=== PATIENT | female | born 1960 | race Caucasian/White ===

== ENCOUNTER → 2016-04-27 | Outpatient (CLI) | payer OTHER ==
[~2016-04-27] MED LIST: FLUT16SP12 NS; HYDR12.512 PO; LEVO125T9 PO; MONT10TA15 PO; VENL150C42 PO
== END ==
LOC: IMA.MDS 12:55
PROVIDERS: ATTEND Family Medicine
DX: M17.11 Unilateral primary osteoarthritis, right knee (principal)

== ENCOUNTER 2016-05-22 19:21 | Emergency (ER) | payer OTHER ==
[~2016-05-22] VITALS: Ht 160 cm; Wt 90.6 kg
[~2016-05-22 19:21] MED LIST changes: +FLUT16SP12 EA NOSTRIL; -FLUT16SP12 NS
--- OUTSIDE RECORDS SUMMARY | 2016-05-22 19:24 | XMS REPORT | Referral Summary ---
Author Author [facility] Organization [facility] Address Unknown Phone Unavailable Care Team Providers Care Warp Doffer Name Role Phone Eve Jaffe Primary Care Physician [phone] Encounter VC Date(s): 08/08/15 - 08/08/15 [facility] [address] [place] [address] Discharge Diagnosis: Hypothyroidism (disorder) Discharge Diagnosis: Benign essential hypertension (disorder) Discharge Diagnosis: Hyperlipidemia Discharge Disposition: 01-Home or Self Care Attending Physician: Sandra Jaffe DO Admitting Physician: Sandra Jaffe DO Vital Signs Most recent to 1 oldest [Reference Range]: Temperature Tympanic 36.4 degC [36.6-38.1 degC] *LOW* (08/08/15 2:56 PM) Peripheral Pulse 89 bpm Rate [60-100 bpm] (08/08/15 2:56 PM) Respiratory Rate 20 br/min [14-20 br/min] (08/08/15 2:56 PM) Blood Pressure 122/80 mmHg [90-140/60-90 mmHg] (08/08/15 2:56 PM) SpO2 98 % (08/08/15 2:56 PM) Problem List Condition Effective Dates Status Health Status Informant Allergic rhinitis Active (disorder)(Confirmed ) Benign essential Active hypertension (disorder)(Confirmed ) Depression(Confirmed Active ) Visual Active problems(Confirmed) Eczema(Confirmed) Active Family history of Active colon cancer(Confirmed) Pituitary Active insufficiency(Confir med) Hypothyroidism Active (disorder)(Confirmed ) Head Active trauma(Confirmed) Menopausal Active symptoms(Confirmed) Overweight(Confirmed Active ) Preventive Active measure(Confirmed) Sinus Active infections(Confirmed ) Allergies, Adverse Reactions, Alerts No Known Allergies Medications Ciarra-D 12 Hour tabs, Oral, q12hr, 0 Refill(s) Start Date: 01/02/14 Status: Ordered Flonase 50 mcg/inh nasal spray 50 mcg 1 sprays, Nasal, Daily, # 3 Each, 3 Refill(s), Pharmacy: [facility] Start Date: 08/08/15 Status: Ordered hydrochlorothiazide 25 mg oral tablet 25 mg 1 tabs, Oral, Daily, # 90 tabs, 2 Refill(s), Pharmacy: [facility], 1 tabs Oral Daily Start Date: 08/08/15 Status: Ordered levothyroxine 112 mcg (0.112 mg) oral tablet 112 mcg 1 tabs, Oral, Daily, # 90 tabs, 2 Refill(s), Pharmacy: [facility], PT DUE FOR APPOINMENT, 1 tabs Oral Daily Start Date: 08/08/15 Status: Ordered meloxicam 15 mg oral tablet 15 mg 1 tabs, Oral, Daily, # 90 tabs, 2 Refill(s), Pharmacy: [facility], 1 tabs Oral Daily Start Date: 08/08/15 Status: Ordered montelukast 10 mg oral tablet 10 mg 1 tabs, Oral, qPM, # 90 tabs, 2 Refill(s), Pharmacy: [facility], 1 tabs Oral qPM Start Date: 08/08/15 Status: Ordered Results No data available for this section Immunizations Vaccine Date Refusal Reason tetanus/diphth/pertuss (Tdap) adult/adol 11/20/14 influenza virus vaccine, live 11/18/12 influenza virus vaccine, live 11/19/11 Procedures Procedure Date Related Diagnosis Body Site Mammogram 04/21/14 Colonoscopy 11/10/12 Vaginal Pap smear 09/09/12 section Cholecystectomy Tubal ligation Social History Social History Type Response Smoking Status Never smoker Assessment and Plan Extracted from: Title: Office Visit Note Author: Sandra Jaffe DO Date: 08/08/15 Assessment/Plan Benign essential hypertension (disorder) Continue current regimen. Patient will have CMPwith her lab work when fasting. Return to clinic in 6 months. Also recommend patient return to clinic at her convenience for well woman exam. Ordered: Office Visit Level 4 Est 52158 Hyperlipidemia CMP and FLP. Further recommendations after results. Ordered: Comprehensive Metabolic Panel Lipid Panel Office Visit Level 4 Est 05558 Hypothyroidism (disorder) TSH. Further recommendations after results. Ordered: Office Visit Level 4 Est 50724 TSH with Reflex Free T4 Orders: fluticasone nasal, 50 mcg 1 sprays, Nasal, Daily, # 3 Each, 3 Refill(s ), [facility]acy: [facility] hydrochlorothiazide, 25 mg 1 tabs, Oral, Daily, # 90 tabs, 2 Refill(s), Pharmacy: [facility], 1 tabs Oral Daily levothyroxine, 112 mcg 1 tabs, Oral, Daily, # 90 tabs, 2 Refill(s), Pharmacy: [facility], PT DUE FOR APPOINMENT, 1 tabs Oral Daily meloxicam, 15 mg 1 tabs, Oral, Daily, # 90 tabs, 2 Refill(s), Pharmacy: [facility], 1 tabs Oral Daily montelukast, 10 mg 1 tabs, Oral, qPM, # 90 tabs, 2 Refill(s), Pharmacy: [facility], 1 tabs Oral qPM
--- OUTSIDE RECORDS SUMMARY | 2016-05-22 19:24 | XMS REPORT | Referral Summary ---
Author Organization Unknown Address Unknown Phone Unavailable Care Team Providers Care Autocad Detailer Name Role Phone Yelitza Post Primary Care Physician [phone] Encounter VC Date(s): 04/13/14 - 04/13/14 [facility] [address] [place] [address] [address] [place] [id number] Discharge Diagnosis: Depression Discharge Diagnosis: Hypothyroidism Discharge Diagnosis: Well woman exam Discharge Diagnosis: Hypertension Discharge Disposition: Home or Self Care Attending Physician: Janey Cruz APRN Admitting Physician: Janey Cruz APRN Vital Signs Most recent to 1 oldest [Reference Range]: Temperature Tympanic 36.3 degC [36.6-38.1 degC] *LOW* (04/13/14 10:21 AM) Peripheral Pulse 88 bpm Rate [60-100 bpm] (04/13/14 10:21 AM) Blood Pressure 130/78 mmHg [90-140/60-90 mmHg] (04/13/14 10:21 AM) Problem List Condition Effective Dates Status Health [...] ) Allergies, Adverse Reactions, Alerts No Known Medication Allergies Medications Ciarra-D 12 Hour tabs, Oral, q12hr, 0 Refill(s) Start Date: 01/02/14 Status: Ordered Effexor Oral, 0 Refill(s) Start Date: 01/02/14 Status: Ordered Flonase 50 mcg/inh nasal spray 1 sprays, Nasal, Daily, 0 Refill(s) Start Date: 03/10/14 Status: Ordered hydrochlorothiazide 25 mg oral tablet 1 tabs, Oral, Daily, Patient must schedule appt prior to next fill., # 30 tabs, 0 Refill(s), Pharmacy: [id number], 1 tabs Oral Daily,Instr: Patient must schedule appt prior to next fill. Special Instructions: Patient must schedule appt prior to next fill. Start Date: 03/19/14 Status: Ordered levothyroxine 112 mcg (0.112 mg) oral tablet See Instructions, TAKE 1 TABLET BY MOUTH EVERY DAY, # 15 tabs, 0 Refill(s), Pharmacy: [facility] [id number], PT DUE FOR APPOINMENT, TAKE 1 TABLET BY MOUTH EVERY DAY Special Instructions: TAKE 1 TABLET BY MOUTH EVERY DAY Start Date: 04/05/14 Status: Ordered montelukast 10 mg oral tablet See Instructions, TAKE 1 TABLET DAILY, # 30 tabs, 0 Refill(s), Pharmacy: [facility], TAKE 1 TABLET DAILY Special Instructions: TAKE 1 TABLET DAILY Start Date: 03/15/14 Status: Ordered Results Hematology Most recent to 1 oldest [Reference Range]: WBC [4.8-10.8 K/uL] 8.1 K/uL (04/13/14 11:06 AM) RBC [4.00-5.20 M/uL] 4.39 M/uL (04/13/14 11:06 AM) Hgb [12.0-16.0 12.7 gm/dL gm/dL] (04/13/14 11:06 AM) Hct [37.0-47.0 %] 35.8 % *LOW* (04/13/14 11:06 AM) MCV [82.0-99.0 fL] 81.5 fL *LOW* (04/13/14 11:06 AM) MCH [27.0-32.0 pg] 28.9 pg (04/13/14 11:06 AM) MCHC [32.0-36.0 35.5 gm/dL gm/dL] (04/13/14 11:06 AM) RDW [11.5-14.5 %] 15.3 % *HI* (04/13/14 11:06 AM) Platelet [150-400 352 K/uL K/uL] (3/3/15 11:06 AM) MPV [8.8-14.8 fL] 10.0 fL (04/13/14) Immature 0.1 % Granulocytes (04/13/14) [0.0-1.0 %] Neutrophils [51-75 61 % %] (04/13/14) Lymphocytes [20-46 30 % %] (04/13/14) Monocytes [4-11 %] 7 % (04/13/14) Eosinophils [0-4 %] 1 % (04/13/14) Basophils [0-2 %] 1 % (04/13/14) Neutro Absolute 4.89 THOUS [1.90-7.00 THOUS] (04/13/14) Lymph Absolute 2.45 THOUS [0.80-3.30 THOUS] (04/13/14) [place] Absolute 0.59 THOUS [0.30-1.00 THOUS] (04/13/14) Eos Absolute 0.10 THOUS [0.00-0.50 THOUS] (04/13/14 AM) Baso Absolute 0.04 THOUS [0.00-0.20 THOUS] (04/13/14) Chemistry Most recent to 1 oldest [Reference Range]: Sodium Lvl [135-144 144 mEq/L mEq/L] (04/13/14 AM) Potassium Lvl 3.8 mEq/L [3.5-5.2 mEq/L] (04/13/14) Chloride [99-111 106 mEq/L mEq/L] (04/13/14 AM) CO2 [22-31 mEq/L] 24 mEq/L (04/13/14 AM) AGAP [3-20] 14 (04/13/14 AM) BUN [10-20 mg/dL] 12 mg/dL (04/13/14 AM) Glucose Lvl [70-99 93 mg/dL mg/dL] (04/13/14 AM) Creatinine Lvl 0.66 mg/dL [0.57-1.11 mg/dL] (04/13/14 11:06 AM) eGFR [>60 mL/min] >60 mL/min 1 (04/13/14 11:06 AM) Calcium Lvl 9.5 mg/dL [8.9-10.5 mg/dL] (04/13/14 11:06 AM) Chol [0-199 mg/dL] 248 mg/dL *HI* (04/13/14 11:06 AM) Trig [0-149 mg/dL] 147 mg/dL (04/13/14 11:06 AM) HDL [40-84 mg/dL] 63 mg/dL (04/13/14 11:06 AM) LDL [0-130 mg/dL] 156 mg/dL *HI* (04/13/14 1106 AM) VLDL Cholesterol 29 mg/dL [0-28 mg/dL] *HI* (04/13/14 11:06 AM) Cardiac Risk 3.9 [0.0-5.0] (04/13/14 11:06 AM) TSH [0.35-4.94] 0.34 *LOW* (04/13/14 11:06 AM) 1Result Comment: Multiply eGFR results by 1.21 for race. Immunizations Vaccine Date Refusal Reason influenza virus vaccine, live 11/18/12 influenza virus vaccine, live 11/19/11 Procedures Procedure Date Related Diagnosis Body Site Collection of venous blood by venipuncture 04/13/14 Colonoscopy 11/10/12 section Cholecystectomy Colonoscopy Tubal ligation Social History Social History Type Response Smoking Status Never smoker Assessment and Plan Extracted from: Title: Office Visit Note Author: Janey Cruz APRN Date: 04/13/14 Assessment/Plan 1.Well woman exam pap next yr. mammo. Depression may rf meds x1yr. Hypertension lab work today, may rf meds. Ordered: Basic Metabolic Panel CBC w/ Differential Hypothyroidism Orders: Lipid Panel MG Mammogram Routine Screening Bilat TSH 3rd Generation
--- OUTSIDE RECORDS SUMMARY | 2016-05-22 19:24 | XMS REPORT | Continuity of Care Document ---
Author Author [facility] Organization [facility] Address Unknown Phone Unavailable Allergies Medications Problems Procedures Results Encounters ACCT No. Visit Date/Time Discharge Status Pt. Type Provider Facility Loc./Unit Complaint [id number] 04/28/2013 08:29:00 04/28/2013 23 :59:59 CLS Outpatient [id number] 04/01/2013 14:44:00 04/01/2013 23 :59:59 CLS Outpatient [id number] 03/03/2013 14:20:00 03/03/2013 23 :59:59 CLS Outpatient
--- OUTSIDE RECORDS SUMMARY | 2016-05-22 19:24 | XMS REPORT | Continuity of Care Document ---
Author Author Miguel Robison MD Ambulatory Address [address] [place] [address] K[facility] [place] [address] Phone Care Team Providers Care Statistician Theoretical Name Role Phone Krystina Post PP Unavailable Krystina Post RP Unavailable Payers Payer name Insurance type Covered green party ID Authorization(s) Unknown Problems Condition Effective Dates (start - stop) Clinical Status Sinusitis, Acute - *Acute Noninfectious Gastroenteritis - *Acute Sinusitis, Acute - *Acute Depression - *Chronic Hypothyroidism - *Chronic Microalbuminuria - *Acute Hypertension, Benign - *Chronic HYPOTHYROIDISM NOS - Allergic rhinitis, cause unspecified - *Acute Dysuria - *Acute HEMATURIA NOS - *Acute Need for unspecified prophylactic measure - *Acute Family history of colon cancer - *Chronic Contact dermatitis and other eczema, unspecified cause - * Chronic Depression - *Chronic Hypertension, Benign - Controlled Hypothyroidism - *Chronic Allergic rhinitis, cause unspecified - *Chronic Influenza Vaccine - Hypertension, Unspecified - *Chronic Nevus, non-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 Other dyschromia - *Chronic Allergic rhinitis, cause unspecified - *Symptomatic Deviated nasal septum - *Chronic Chronic recurrent sinusitis - *Poor control Gynecological Examination - *Routine Allergic rhinitis, cause unspecified - *Chronic Family History Family Member Diagnosis Age At Onset Status Brother (Unknown) Obesity Yes Family h/o (Unknown) Allergies Yes Family h/o (Unknown) Premature CAD Yes Family h/o (Unknown) Obesity Yes Brother (Unknown) Allergies Yes Family h/o (Unknown) Cancer Yes Social History Social History Element Description Quantity Unknown Allergies, Adverse Reactions, Alerts Substance Reaction Severity Status Unknown Medications Medication Instructions Dosage Effective Dates (start - stop) Status Zofran 4 mg tablet take 1 Tablet (4MG) by oral route every 6 hours 4 MG - Active hydrochlorothiazide 25 mg tablet take 1 Tablet by Oral route every day 0 - Active Effexor XR 150 mg capsule,extended release take 1 capsule (150MG) by oral route every day 150 MG - Active Singulair 10 mg tablet Take 1 tablet by mouth every day. - Active Flonase 50 mcg/actuation nasal spray,suspension inhale 1 spray (50MCG) by intranasal route every day in each nostril 50 MCG - Active Tirosint 112 mcg capsule take 1 capsule (112MCG) by oral route every day 112 MCG - Active Immunizations Vaccine Date Status Comments Fluzone HD 0.5 completed flu (split) preservative free, 3 yrs or older completed Results Test Name Date and Time Measure Units Reference Range Abnormal Flag Comments Unknown Vital Signs Date / Time: Height Weight Pulse Rate Blood Pressure Temperature /08:33:00 64.25 in 200.20 lbs 88 /min 112/74 mm[Hg] 98.4 F Procedures Procedure Date Unknown Encounters Encounter Location Date Patient Visit [facility] Patient Visit [facility] Patient Visit [facility] Patient Visit [facility] Patient Visit [facility] Patient Visit [facility] Patient Visit [facility] Patient Visit [facility] Patient Visit [facility] Patient Visit [facility] Patient Visit [facility] E21 Derm Patient Visit [facility] FC ENT Patient Visit [facility] Advance Directives Directive Effective Date Unknown
--- OUTSIDE RECORDS SUMMARY | 2016-05-22 19:24 | XMS REPORT | Referral Summary ---
Author Author [facility] Organization [facility] Address Unknown Phone Unavailable Care Team Providers Care Roving Inspector Name Role Phone Eve Jaffe Primary Care Physician [phone] Encounter Date(s): 11/20/14 - 11/20/14 [facility] [address] [place] [address] [facility] Discharge Diagnosis: Hand laceration Discharge Disposition: 01-Home or Self Care Attending Physician: Provider, Immediate Care Admitting Physician: Provider, Immediate Care Vital Signs Most recent to 1 oldest [Reference Range]: Temperature Oral 37.1 degC [35.8-37.3 degC] (11/20/14 4:19 PM) Peripheral Pulse 88 bpm Rate [60-100 bpm] (11/20/14 4:19 PM) Blood Pressure 140/86 mmHg [90-140/60-90 mmHg] (11/20/14 4:19 PM) SpO2 97 % (11/20/14 4:19 PM) Problem List Condition Effective Dates Status [...] Daily, # 3 Each, 3 Refill(s), [facility]acy: [facility] Start Date: 03/02/15 Status: Ordered hydrochlorothiazide 25 mg oral tablet 25 mg 1 tabs, Oral, Daily, # 90 tabs, 0 Refill(s), Pharmacy: [id number], 1 tabs Oral Daily Start Date: 05/06/15 Status: Ordered levothyroxine 112 mcg (0.112 mg) oral tablet 112 mcg 1 tabs, Oral, Daily, # 90 tabs, 0 Refill(s), Pharmacy: [facility] [id number], PT DUE FOR APPOINMENT, 1 tabs Oral Daily Start Date: 05/06/15 Status: Ordered montelukast 10 mg oral tablet 10 mg 1 tabs, Oral, qPM, # 90 tabs, 0 Refill(s), Pharmacy: [facility] [id number], 1 tabs Oral qPM Start Date: 05/06/15 Status: Ordered Results No data available for this section Immunizations Vaccine Date Refusal Reason tetanus/diphth/pertuss (Tdap) adult/adol 11/20/14 influenza virus vaccine, live 11/18/12 influenza virus vaccine, live 11/19/11 Procedures Procedure Date Related Diagnosis Body Site Simple repair of superficial wounds of scalp, 11/20/14 neck, axillae, external genitalia, trunk and/or extremities (including hands and feet); 2.5 cm or less Simple repair of superficial wounds of scalp, 11/20/14 neck, axillae, external genitalia, trunk and/or extremities (including hands and feet); 2.5 cm or less Simple repair of superficial wounds of scalp, 11/20/14 neck, axillae, external genitalia, trunk and/or extremities (including hands and feet); 2.5 cm or less Colonoscopy 11/10/12 section Cholecystectomy Tubal ligation Social History Social History Type Response Smoking Status Never smoker Assessment and Plan Extracted from: Title: Office Visit Note Author: Marquis Napoles MD Date: 11/20/14 Assessment/Plan Hand laceration - Full-thickness skin laceration of thedorsal aspect of the patient'sright hand. - Recommend suture removal in 7-10 days. - TDaP given today. Procedure note: The area was cleaned and prepped with Betadine.The area was anesthetized with 2ccs of 1 percent lidocaine without epinephrinein a field block. The laceration was closed with 4 simple interrupted5-0 Prolene sutures in the usual sterile fashion.Laceration well approximatedwith the sutures and then covered with asterile bandage. The patient tolerated the procedure well.
--- OUTSIDE RECORDS SUMMARY | 2016-05-22 19:24 | XMS REPORT | Referral Summary ---
Author Author [facility] Organization [facility] Address Unknown Phone Unavailable Care Team Providers Care Taker Off Hemp Fiber Name Role Phone Eve Jaffe Primary Care Physician [phone] Encounter VC Date(s): 10/21/15 - 10/21/15 [facility], [address] [place] [id number] Discharge Diagnosis: Medication monitoring encounter Discharge Disposition: 01-Home or Self Care Attending Physician: Misha Wilkinson APRN Admitting Physician: Misha Wilkinson APRN Vital Signs Most recent to 1 oldest [Reference Range]: Temperature Tympanic 36.8 degC [36.6-38.1 degC] (10/21/15 3:06 PM) Apical Heart Rate 88 bpm [60-100 bpm] (10/21/15 3:06 PM) Respiratory Rate 18 br/min [14-20 br/min] (10/21/15 3:06 PM) Blood Pressure 138/80 mmHg [90-140/60-90 mmHg] (10/21/15 3:06 PM) SpO2 98 % (10/21/15 3:06 PM) Problem List Condition Effective Dates Status [...] Daily, # 3 Each, 3 Refill(s), Pharmacy: [facility] Start Date: 08/08/15 Status: Ordered hydrochlorothiazide 25 mg oral tablet 25 mg 1 tabs, Oral, Daily, # 90 tabs, 2 Refill(s), Pharmacy: [facility], 1 tabs Oral Daily Start Date: 08/08/15 Status: Ordered levothyroxine 112 mcg (0.112 mg) oral tablet 112 mcg 1 tabs, Oral, Daily, # 90 tabs, 2 Refill(s), Pharmacy: [facility], PT DUE FOR APPOINMENT, 1 tabs Oral Daily Start Date: 08/08/15 Status: Ordered meloxicam 15 mg oral tablet 15 mg 1 tabs, Oral, Daily, # 90 tabs, 0 Refill(s) Start Date: 08/26/15 Status: Ordered montelukast 10 mg oral tablet 10 mg 1 tabs, Oral, qPM, # 90 tabs, 2 Refill(s), Pharmacy: [facility], 1 tabs Oral qPM Start Date: 08/08/15 Status: Ordered sertraline 50 mg oral tablet 50 mg 1 tabs, Oral, Daily, # 90 tabs, 0 Refill(s), Pharmacy: [facility], 1 tabs Oral Daily Start Date: 09/23/15 Status: Ordered Results Chemistry Most recent to 1 oldest [Reference Range]: Sodium Lvl [135-144 139 mEq/L mEq/L] (10/21/15 4:33 PM) Potassium Lvl 4.1 mEq/L [3.5-5.2 mEq/L] (10/21/15 4:33 PM) Chloride [99-111 102 mEq/L mEq/L] (10/21/15 4:33 PM) CO2 [22-31 mEq/L] 31 mEq/L (10/21/15 4:33 PM) AGAP [3-20] 6 (10/21/15 4:33 PM) BUN [10-20 mg/dL] 19 mg/dL (10/21/15 4:33 PM) Glucose Lvl [70-99 81 mg/dL mg/dL] (10/21/15 4:33 PM) Creatinine Lvl 0.67 mg/dL [0.57-1.11 mg/dL] (10/21/15 4:33 PM) eGFR [>60 mL/min] >60 mL/min 1 (10/21/15 4:33 PM) Calcium Lvl 9.7 mg/dL [8.9-10.5 mg/dL] (10/21/15 4:33 PM) 1Result Comment: Multiply eGFR results by 1.21 for race. Immunizations Vaccine Date Refusal Reason tetanus/diphth/pertuss (Tdap) adult/adol 11/20/14 influenza virus vaccine, live 11/18/12 influenza virus vaccine, live 11/19/11 Procedures Procedure Date Related Diagnosis Body Site Mammogram 10/12/15 Colonoscopy 11/10/12 Vaginal Pap smear 09/09/12 section Cholecystectomy Tubal ligation Social History Social History Type Response Smoking Status Never smoker Assessment and Plan No data available for this section
--- OUTSIDE RECORDS SUMMARY | 2016-05-22 19:24 | XMS REPORT | Referral Summary ---
Author Author [facility] Organization [facility] Address Unknown Phone Unavailable Care Team Providers Care Musical Instrument Mechanic Name Role Phone Eve Jaffe Primary Care Physician [phone] Encounter VC Date(s): 09/20/15 - 09/20/15 [facility], [address] [place] [id number] Discharge Disposition: 01-Home or Self Care Attending Physician: Misha Wilkinson APRN Admitting Physician: Misha Wilkinson APRN Vital Signs Most recent to 1 oldest [Reference Range]: Temperature Tympanic 36.6 degC [36.6-38.1 degC] (09/20/15 3:43 PM) Peripheral Pulse 88 bpm Rate [60-100 bpm] (09/20/15 3:43 PM) Blood Pressure 136/84 mmHg [90-140/60-90 mmHg] (09/20/15 3:43 PM) Problem List Condition Effective Dates Status [...] Daily, # 3 Each, 3 Refill(s), Pharmacy: [facility] Start Date: 08/08/15 Status: Ordered hydrochlorothiazide 25 mg oral tablet 25 mg 1 tabs, Oral, Daily, # 90 tabs, 2 Refill(s), Pharmacy: [facility], 1 tabs Oral Daily Start Date: 08/08/15 Status: Ordered levothyroxine 112 mcg (0.112 mg) oral tablet 112 mcg 1 tabs, Oral, Daily, # 90 tabs, 2 Refill(s), Pharmacy: [facility], PT DUE FOR APPOINMENT, 1 tabs Oral Daily Start Date: 08/08/15 Status: Ordered meloxicam 15 mg oral tablet 15 mg 1 tabs, Oral, Daily, # 90 tabs, 0 Refill(s) Start Date: 08/26/15 Status: Ordered montelukast 10 mg oral tablet 10 mg 1 tabs, Oral, qPM, # 90 tabs, 2 Refill(s), Pharmacy: [facility], 1 tabs Oral qPM Start Date: 08/08/15 Status: Ordered sertraline 50 mg oral tablet See Instructions, 0.5 tabs PO daily x1 week then 1 tabs Oral Daily, # 30 tabs, 0 Refill(s), [id number], 0.5 tabs PO daily x1 week then 1 tabs Oral Daily Start Date: 09/20/15 Status: Ordered Results No data available for [...]
--- OUTSIDE RECORDS SUMMARY | 2016-05-22 19:25 | XMS REPORT | Referral Summary ---
Author Author [facility] Organization [facility] Address Unknown Phone Unavailable Care Team Providers Care International Sales Manager Name Role Phone Eve Jaffe Primary Care Physician [phone] Encounter VC Date(s): 08/26/15 - 08/26/15 [facility], [address] [place] [id number] Discharge Disposition: 01-Home or Self Care Attending Physician: Sandra Jaffe DO Admitting Physician: Sandra Jaffe DO Vital Signs Most recent to 1 oldest [Reference Range]: Peripheral Pulse 79 bpm Rate [60-100 bpm] (08/26/15 3:26 PM) Respiratory Rate 18 br/min [14-20 br/min] (08/26/15 3:26 PM) Blood Pressure 118/78 mmHg [90-140/60-90 mmHg] (08/26/15 3:26 PM) SpO2 98 % (08/26/15 3:26 PM) Problem List Condition Effective Dates Status [...] Daily, # 3 Each, 3 Refill(s), Pharmacy: [facility] Start Date: 08/08/15 Status: Ordered hydrochlorothiazide 25 mg oral tablet 25 mg 1 tabs, Oral, Daily, # 90 tabs, 2 Refill(s), [facility]acy: [facility], 1 tabs Oral Daily Start Date: 08/08/15 Status: Ordered levothyroxine 112 mcg (0.112 mg) oral tablet 112 mcg 1 tabs, Oral, Daily, # 90 tabs, 2 Refill(s), [facility]: [facility], PT DUE FOR APPOINMENT, 1 tabs Oral Daily Start Date: 08/08/15 Status: Ordered meloxicam 15 mg oral tablet 15 mg 1 tabs, Oral, Daily, # 90 tabs, 0 Refill(s) Start Date: 08/26/15 Status: Ordered montelukast 10 mg oral tablet 10 mg 1 tabs, Oral, qPM, # 90 tabs, 2 Refill(s), [facility]acy: [facility], 1 tabs Oral qPM Start [...]
--- OUTSIDE RECORDS SUMMARY | 2016-05-22 19:25 | XMS REPORT | Continuity of Care Document ---
Author Author Krystina Post MD [facility] Ambulatory Address [address] [place] [address] [facility] [place] [address] Phone Care Team Providers Care Critical Care Rn Name Role Phone Krystina Post PP Unavailable Payers Payer name Insurance type Covered constitution party ID Authorization(s) Unknown Problems Condition Effective Dates (start - stop) Clinical Status Sinusitis, Acute - *Acute Depression - *Chronic Hypothyroidism - *Chronic Microalbuminuria - *Acute Sinusitis, Acute - *Acute Noninfectious Gastroenteritis - *Acute Hypertension, Benign - *Chronic HYPOTHYROIDISM [...] hyperplasia - *Chronic Other dyschromia - *Chronic Gynecological Examination - *Routine Allergic rhinitis, cause [...] Dosage Effective Dates (start - stop) Status Singulair 10 mg tablet Take 1 tablet by mouth every day. - Active Effexor XR 150 mg capsule,extended release take 1 capsule (150MG) by oral route every day 150 MG - Active Flonase 50 mcg/actuation nasal spray,suspension inhale 1 spray (50MCG) by intranasal route every day in each nostril 50 MCG - Active Augmentin 875 mg-125 mg tablet take 1 tablet by oral route every 12 hours for 10 days 0 - No Longer Active levothyroxine 125 mcg tablet Take 1 tablet by mouth every day. 2012 - Active hydrochlorothiazide 25 mg tablet take 1 Tablet by Oral route every day 0 - Active Zofran 4 mg tablet take 1 Tablet (4MG) by oral route every 6 hours 4 MG - Active Immunizations Vaccine Date Status Comments Fluzone HD 0.5 completed flu (split) preservative free, 3 yrs or older completed Results Test Name Date and Time Measure Units Reference Range Abnormal Flag Comments Unknown Vital Signs Date / Time: Height Weight Pulse Rate Blood Pressure Temperature /14:48:00 64.25 in 197.00 lbs 74 /min 122/68 mm[Hg] 97.5 F Procedures Procedure Date Unknown Encounters Encounter Location Date Patient Visit [facility] Patient Visit [facility] Patient Visit [facility] Patient Visit [facility] Patient Visit [facility] Patient Visit [facility] Patient Visit [facility] Patient Visit [facility] Patient Visit [facility] Patient Visit [facility] Patient Visit [facility] E[facility] Derm Patient Visit [facility] Advance Directives Directive Effective Date Unknown
--- OUTSIDE RECORDS SUMMARY | 2016-05-22 19:25 | XMS REPORT | Referral Summary ---
Author Author [facility], Family Medicine Organization [facility] Address Unknown Phone Unavailable Care Team Providers Care Bevel Mill Operator Name Role Phone Eve Jaffe Primary Care Physician [phone] Encounter VC Date(s): 06/16/15 - 06/16/15 [facility], [address] [place] [address]- Discharge Disposition: 01-Home or Self Care Attending Physician: Misha Wilkinson APRN Admitting Physician: Misha Wilkinson APRN Vital Signs Most recent to 1 oldest [Reference Range]: Peripheral Pulse 72 bpm Rate [60-100 bpm] (06/16/15 8:08 AM) Blood Pressure 118/65 mmHg [90-140/60-90 mmHg] (06/16/15 8:08 AM) Problem List Condition Effective Dates Status [...] Daily, # 3 Each, 3 Refill(s), Pharmacy: [facility] Start Date: 03/02/15 Status: Ordered hydrochlorothiazide 25 mg oral tablet 25 mg 1 tabs, Oral, Daily, # 90 tabs, 0 Refill(s), Pharmacy: [facility] [id number], 1 tabs Oral Daily Start Date: 05/06/15 Status: Ordered levothyroxine 112 mcg (0.112 mg) oral tablet 112 mcg 1 tabs, Oral, Daily, # 90 tabs, 0 Refill(s), Pharmacy: [facility] [id number], PT DUE FOR APPOINMENT, 1 tabs Oral Daily Start Date: 05/06/15 Status: Ordered meloxicam 15 mg oral tablet 15 mg 1 tabs, Oral, Daily, # 15 tabs, 0 Refill(s), Pharmacy: [facility] [id number], 1 tabs Oral Daily Start Date: 06/16/15 Status: Ordered montelukast 10 mg oral tablet 10 mg 1 tabs, Oral, qPM, # 90 tabs, 0 Refill(s), [facility] [id number], 1 tabs Oral qPM Start Date: 05/06/15 Status: Ordered Results No data available for this section Immunizations Vaccine Date Refusal Reason tetanus/diphth/pertuss (Tdap) adult/adol 11/20/14 influenza virus vaccine, live 11/18/12 influenza virus vaccine, live 11/19/11 Procedures Procedure Date Related Diagnosis Body Site Colonoscopy 11/10/12 section Cholecystectomy Tubal ligation Social History Social History Type Response Smoking Status Never smoker Assessment and Plan No data available for this section
--- OUTSIDE RECORDS SUMMARY | 2016-05-22 19:25 | XMS REPORT | Referral Summary ---
Author Author [facility], Family Medicine Organization [facility] Address Unknown Phone Unavailable Care Team Providers Care Dental Intern Name Role Phone Eve Jaffe Primary Care Physician [phone] Encounter VC Date(s): 06/02/15 - 06/02/15 [facility], [address] [place] [address]- Discharge Disposition: 01-Home or Self Care Attending Physician: Misha Wilkinson APRN Admitting Physician: Misha Wilkinson APRN Vital Signs Most recent to 1 oldest [Reference Range]: Peripheral Pulse 73 bpm Rate [60-100 bpm] (06/02/15 8:05 AM) Respiratory Rate 18 br/min [14-20 br/min] (06/02/15 8:05 AM) Blood Pressure 110/78 mmHg [90-140/60-90 mmHg] (06/02/15 8:05 AM) SpO2 98 % (06/02/15 8:05 AM) Problem List Condition Effective Dates Status [...] Daily, # 3 Each, 3 Refill(s), Pharmacy: [facility] Start Date: 03/02/15 Status: Ordered hydrochlorothiazide 25 mg oral tablet 25 mg 1 tabs, Oral, Daily, # 90 tabs, 0 Refill(s), Pharmacy: [facility] [id number], 1 tabs Oral Daily Start Date: 05/06/15 Status: Ordered levothyroxine 112 mcg (0.112 mg) oral tablet 112 mcg 1 tabs, Oral, Daily, # 90 tabs, 0 Refill(s), Pharmacy: [facility] [id number], PT DUE FOR APPOINMENT, 1 tabs Oral Daily Start Date: 05/06/15 Status: Ordered meloxicam 15 mg oral tablet 15 mg 1 tabs, Oral, Daily, # 15 tabs, 0 Refill(s), Pharmacy: [facility] [id number], 1 tabs Oral Daily Start Date: 06/02/15 Status: Ordered montelukast 10 mg oral tablet 10 mg 1 tabs, Oral, qPM, # 90 tabs, 0 Refill(s), Pharmacy: [facility] [id number], 1 tabs Oral qPM Start Date: 05/06/15 [...]
--- OUTSIDE RECORDS SUMMARY | 2016-05-22 19:25 | XMS REPORT | Referral Summary ---
Author Author [facility], Family [facility] Organization [facility] Address Unknown Phone Unavailable Care Team Providers Care Segmental Wall Installer Name Role Phone Eve Jaffe Primary Care Physician [phone] Encounter VC Date(s): 01/12/16 - 01/12/16 [facility], [address] [place] [address] Discharge Diagnosis: Benign essential hypertension (disorder) Discharge Diagnosis: Anxiety Discharge Diagnosis: Chronic insomnia Discharge Disposition: 01-Home or Self Care Attending Physician: Sandra Jaffe DO Admitting Physician: Sandra Jaffe DO Vital Signs Most recent to 1 oldest [Reference Range]: Temperature Tympanic 36.8 degC [36.6-38.1 degC] (01/12/16 2:55 PM) Peripheral Pulse 97 bpm Rate [60-100 bpm] (01/12/16 2:55 PM) Blood Pressure 140/88 mmHg [90-140/60-90 mmHg] (01/12/16 2:55 PM) SpO2 97 % (01/12/16 2:55 PM) Problem List Condition Effective Dates Status Health Status Informant Allergic rhinitis Active (disorder)(Confirmed ) Benign essential Active hypertension (disorder)(Confirmed ) Depression(Confirmed Active ) Visual Active problems(Confirmed) Eczema(Confirmed) Active Family history of Active colon cancer(Confirmed) Pituitary Active insufficiency(Confir med) Hypothyroidism Active (disorder)(Confirmed ) Head Active trauma(Confirmed) Menopausal Active symptoms(Confirmed) Overweight(Confirmed Active ) Chronic Active insomnia(Confirmed) Preventive Active measure(Confirmed) Sinus Active infections(Confirmed ) Allergies, Adverse Reactions, Alerts No Known Allergies Medications Ciarra-D 12 Hour tabs, Oral, q12hr, 0 Refill(s) Start Date: 01/02/14 Status: Ordered Flonase 50 mcg/inh nasal spray 50 mcg 1 sprays, Nasal, Daily, # 3 Each, 3 Refill(s), Pharmacy: [facility] Start Date: 08/08/15 Status: Ordered hydrochlorothiazide 25 mg oral tablet 25 mg 1 tabs, Oral, Daily, # 90 tabs, 2 Refill(s), Pharmacy: [facility], 1 tabs Oral Daily Start Date: 08/08/15 Status: Ordered levothyroxine 112 mcg (0.112 mg) oral tablet 112 mcg 1 tabs, Oral, Daily, # 90 tabs, 2 Refill(s), Pharmacy: [facility], PT DUE FOR APPOINMENT, 1 tabs Oral Daily Start Date: 08/08/15 Status: Ordered meloxicam 15 mg oral tablet 15 mg 1 tabs, Oral, Daily, # 90 tabs, 0 Refill(s) Start Date: 08/26/15 Status: Ordered montelukast 10 mg oral tablet 10 mg 1 tabs, Oral, qPM, # 90 tabs, 2 Refill(s), Pharmacy: [facility], 1 tabs Oral qPM Start Date: 08/08/15 Status: Ordered temazepam 7.5 mg oral capsule 7.5 mg 1 caps, Oral, Bedtime (once a day), as needed for sleep, # 30 caps, 5 Refill(s) Start Date: 01/12/16 Status: Ordered Vistaril 25 mg oral capsule 25 mg 1 caps, Oral, QID, as needed for anxiety, # 40 caps, 0 Refill(s), Pharmacy : [facility] [id number], 1 caps Oral QID,PRN:as needed for anxiety Start Date: 01/12/16 Status: Ordered Results Chemistry Most recent to 1 oldest [Reference Range]: TSH with Reflex Free 0.37 T4 [0.35-4.94] (01/12/16 3:12 PM) Immunizations Vaccine Date Refusal Reason tetanus/diphth/pertuss (Tdap) adult/adol 11/20/14 influenza virus vaccine, inactivated 12/16/15 influenza virus vaccine, live 11/18/12 influenza virus vaccine, live 11/19/11 Procedures Procedure Date Related Diagnosis Body Site Mammogram 10/12/15 Colonoscopy 11/10/12 Vaginal Pap smear 09/09/12 section Cholecystectomy Tubal ligation Social History Social History Type Response Smoking Status Never smoker Assessment and Plan Extracted from: Title: Office Visit Note Author: Sandra Jaffe DO Date: 01/12/16 Assessment/Plan Anxiety Continue Vistaril on an as-needed basis, return to clinic in 6 months or sooner with problems. Ordered: Office Visit Level 4 Est 14231 Benign essential hypertension (disorder) Continue current regimen, not yet due for lab work, return to clinic in 6 months. Ordered: Office Visit Level 4 Est 07598 Chronic insomnia Continue temazepam, return to clinic in 6 months. Ordered: Office Visit Level 4 Est 04249 Hypothyroid TSH today as she was outside of the range on last check 6 months ago. Further recommendations after results. Ordered: Office Visit Level 4 Est 42765 TSH with Reflex Free T4 Extracted from: Title: Ambulatory Patient Education Author: Sandra Jaffe DO Date: Behavioral Health Insomnia Insomnia is a sleep disorder that makes it difficult to fall asleep or to stay asleep. Insomnia can cause tiredness (fatigue), low energy, difficulty concentrating, mood swings, and poor performance at work or school. There are three different ways to classify insomnia: Difficulty falling asleep. Difficulty staying asleep. Waking up too early in the morning. Any type of insomnia can be long-term (chronic) or short-term (acute). Both are common. Short-term insomnia usually lasts for three months or less. Chronic insomnia occurs at least three times a week for longer than three months. CAUSES Insomnia may be caused by another condition, situation, or substance, such as: Anxiety. Certain medicines. Gastroesophageal reflux disease (GERD) or other gastrointestinal conditions. Asthma or other breathing conditions. Restless legs syndrome, sleep apnea, or other sleep disorders. Chronic pain. Menopause. This may include hot flashes. Stroke. Abuse of alcohol, tobacco, or illegal drugs. Depression. Caffeine. Neurological disorders, such as Alzheimer disease. An overactive thyroid (hyperthyroidism). The cause of insomnia may not be known. RISK FACTORS Risk factors for insomnia include: Gender. Women are more commonly affected than men. Age. Insomnia is more common as you get older. Stress. This may involve your professional or personal life. Income. Insomnia is more common in people with lower income. Lack of exercise. Irregular work schedule or night shifts. Travelling between different time zones. SIGNS AND SYMPTOMS If you have insomnia, trouble falling asleep or trouble staying asleep is the main symptom. This may lead to other symptoms, such as: Feeling fatigued. Feeling nervous about going to sleep. Not feeling rested in the morning. Having trouble concentrating. Feeling irritable, anxious, or depressed. TREATMENT Treatment for insomnia depends on the cause. If your insomnia is caused by an underlying condition, treatment will focus on addressing the condition. Treatment may also include: Medicines to help you sleep. Counseling or therapy. Lifestyle adjustments. HOME CARE INSTRUCTIONS Take medicines only as directed by your health care provider. Keep regular sleeping and waking hours. Avoid naps. Keep a sleep diary to help you and your health care provider figure out what could be causing your insomnia. Include: When you sleep. When you wake up during the night. How well you sleep. How rested you feel the next day. Any side effects of medicines you are taking. What you eat and drink. Make your bedroom a comfortable place where it is easy to fall asleep: Put up shades or special blackout curtains to block light from outside. Use a white noise machine to block noise. Keep the temperature cool. Exercise regularly as directed by your health care provider. Avoid exercising right before bedtime. Use relaxation techniques to manage stress. Ask your health care provider to suggest some techniques that may work well for you. These may include: Breathing exercises. Routines to release muscle tension. Visualizing peaceful scenes. Cut back on alcohol, caffeinated beverages, and cigarettes, especially close to bedtime. These can disrupt your sleep. Do not overeat or eat spicy foods right before bedtime. This can lead to digestive discomfort that can make it hard for you to sleep. Limit screen use before bedtime. This includes: Watching TV. Using your smartphone, tablet, and computer. Stick to a routine. This can help you fall asleep faster. Try to do a quiet activity, brush your teeth, and go to bed at the same time each night. Get out of bed if you are still awake after 15 minutes of trying to sleep. Keep the lights down, but try reading or doing a quiet activity. When you feel sleepy, go back to bed. Make sure that you drive carefully. Avoid driving if you feel very sleepy. Keep all follow-up appointments as directed by your health care provider. This is important. SEEK MEDICAL CARE IF: You are tired throughout the day or have trouble in your daily routine due to sleepiness. You continue to have sleep problems or your sleep problems get worse. SEEK IMMEDIATE MEDICAL CARE IF: You have serious thoughts about hurting yourself or someone else. This information is not intended to replace advice given to you by your health care provider. Make sure you discuss any questions you have with your health care provider. Document Released: 01/25/2001 Document Revised: 02/18/2015 Document Reviewed: [employer] Interactive Patient Education 2016 [employer] No follow up information was provided.
--- OUTSIDE RECORDS SUMMARY | 2016-05-22 19:25 | XMS REPORT | Referral Summary ---
Author Author [facility] Organization [facility], Immediate Care Address Unknown Phone Unavailable Care Team Providers Care Dairy Farm Manager Name Role Phone Eve Jaffe Primary Care Physician [phone] Encounter VC Date(s): 04/29/15 - 04/29/15 [facility] [address] [place] [address] [facility] Discharge Diagnosis: Lumbosacral strain Discharge Diagnosis: Leg pain Discharge Disposition: 01-Home or Self Care Attending Physician: Provider, Immediate Care Attending Physician: Tila Scott PA-C Admitting Physician: Provider, Immediate Care Vital Signs Most recent to 1 oldest [Reference Range]: Temperature Oral 36.9 degC [35.8-37.3 degC] (04/29/15 10:12 AM) Peripheral Pulse 91 bpm Rate [60-100 bpm] (04/29/15 10:12 AM) Blood Pressure 125/81 mmHg [90-140/60-90 mmHg] (04/29/15 10:12 AM) SpO2 99 % (04/29/15 10:12 AM) Problem List Condition Effective Dates Status [...] 0 Refill(s) Start Date: 01/02/14 Status: Ordered cyclobenzaprine 10 mg oral tablet 10 mg 1 tabs, Oral, TID, as needed for spasm, # 15 tabs, 0 Refill(s), Pharmacy: [facility] [id number], 1 tabs Oral TID,PRN:as needed for spasm Start Date: 04/29/15 Stop Date: 05/02/15 Status: Ordered diclofenac 1% topical gel 1 anival, Topical, QID, as needed for pain, not to exceed 32 grams/day Use 2 grams on affected area, # 100 g, 0 Refill(s), Pharmacy: [facility] [id number] Start Date: 04/29/15 Status: Ordered Flonase 50 mcg/inh nasal spray 50 mcg 1 sprays, Nasal, Daily, # 3 Each, 3 Refill(s), Pharmacy: [facility] Start Date: 03/02/15 Status: Ordered hydrochlorothiazide 25 mg oral tablet 1 tabs, Oral, Daily, # 90 tabs, 3 Refill(s), Pharmacy: [facility], 1 tabs Oral Daily Start Date: 04/22/14 Status: Ordered levothyroxine 112 mcg (0.112 mg) oral tablet 1 tabs, Oral, Daily, # 90 tabs, 3 Refill(s), Pharmacy: [facility], PT DUE FOR APPOINMENT, 1 tabs Oral Daily Start Date: 04/22/14 Status: Ordered Lidoderm 5% topical film 1 patches, Topical, Daily, # 30 patches, 0 Refill(s), Pharmacy: [facility] [id number] Start Date: 04/29/15 Status: Ordered montelukast 10 mg oral tablet 1 tabs, Oral, qPM, # 90 tabs, 3 Refill(s), Pharmacy: [facility], 1 tabs Oral qPM Start Date: 04/22/14 Status: Ordered Results No data available for this section Immunizations Vaccine Date Refusal Reason tetanus/diphth/pertuss (Tdap) adult/adol 11/20/14 influenza virus vaccine, live 11/18/12 influenza virus vaccine, live 11/19/11 Procedures Procedure Date Related Diagnosis Body Site Colonoscopy 11/10/12 section Cholecystectomy Tubal ligation Social History Social History Type Response Smoking Status Never smoker Assessment and Plan Extracted from: Title: Office Visit Note Author: Tila Scott PA-C Date: 04/29/15 Assessment/Plan 1.Lumbosacral strain I reviewed my findings with the patient. She would like to try diclofenac gel, Lidoderm patches and a muscle relaxant. She is instructed to continue to take Advil or Aleve. She is also instructed to do gentle low back stretches. Instructed patient if symptoms worsen or new symptoms arise to seek medical attention here, with family physicianor at the ER. Instructed patient if symptoms do not improve follow up with PCP in 2-3 days. Patient voiced understanding and agreed with treatment plan. Patient dismissed in stable condition. Leg pain Orders: cyclobenzaprine, 10 mg 1 tabs, Oral, TID, as needed for spasm, # 15 tabs, 0 Refill(s), Pharmacy: [facility] [address], 1 tabs Oral TID,PRN:as needed for spasm diclofenac topical, 1 anival, Topical, QID, as needed for pain, not to exceed 32 grams/day Use 2 grams on affected area, # 100 g, 0 Refill(s), Pharmacy: [facility] [id number] lidocaine topical, 1 patches, Topical, Daily, # 30 patches, 0 Refill(s), Pharmacy: [facility] [id number] Addendum Patient is given toradol 30mg IM by Tila Scott PA-C on April 29, 2015 12:13:38 CDT
--- OUTSIDE RECORDS SUMMARY | 2016-05-22 19:25 | XMS REPORT | Referral Summary ---
Author Author [facility] Organization [facility] Address Unknown Phone Unavailable Care Team Providers Care Operations Dispatcher Name Role Phone Yelitza Post Primary Care Physician [phone] Encounter [facility] [id number] Date(s): 11/20/14 - 11/20/14 [facility] [address] [place] [address] [facility] Discharge Diagnosis: Hand laceration Discharge Disposition: 01-Home [...] Refill(s) Start Date: 01/02/14 Status: Ordered Effexor XR 150 mg oral capsule, extended release 1 caps, Oral, Daily, # 90 caps, 3 Refill(s), Pharmacy: [facility], 1 caps Oral Daily Start Date: 04/22/14 Status: Ordered Flonase 50 mcg/inh nasal spray 1 sprays, Nasal, Daily, # 3 Each, 3 Refill(s), Pharmacy: [facility] Start Date: 04/22/14 Status: Ordered hydrochlorothiazide 25 mg oral tablet 1 tabs, Oral, Daily, # 90 tabs, 3 Refill(s), Pharmacy: [facility], 1 tabs Oral Daily Start Date: 04/22/14 Status: Ordered levothyroxine 112 mcg (0.112 mg) oral tablet 1 tabs, Oral, Daily, # 90 tabs, 3 Refill(s), Pharmacy: [facility], PT DUE FOR APPOINMENT, 1 tabs Oral Daily Start Date: 04/22/14 Status: Ordered montelukast 10 mg oral tablet 1 tabs, Oral, qPM, # 90 tabs, 3 Refill(s), Pharmacy: [facility], 1 tabs Oral qPM Start [...] cm or less Colonoscopy 11/10/12 section Cholecystectomy Colonoscopy Tubal ligation [...]
--- OUTSIDE RECORDS SUMMARY | 2016-05-22 19:25 | XMS REPORT | Referral Summary ---
Author Author [facility], Family Medicine Organization [facility] Address Unknown Phone Unavailable Care Team Providers Care Med Surg Rn Name Role Phone Eve Jaffe Primary Care Physician [phone] Encounter VC Date(s): 12/16/15 - 12/16/15 [facility], [address] [place] [id number] Discharge Diagnosis: Chronic insomnia Discharge Diagnosis: Anxiety Discharge Disposition: 01-Home or Self Care Attending Physician: Sandra Jaffe DO Admitting Physician: Sandra Jaffe DO Vital Signs Most recent to 1 oldest [Reference Range]: Temperature Tympanic 36.8 degC [36.6-38.1 degC] (12/16/15 1:50 PM) Peripheral Pulse 78 bpm Rate [60-100 bpm] (12/16/15 1:50 PM) Respiratory Rate 16 br/min [14-20 br/min] (12/16/15 1:50 PM) Blood Pressure 150/88 mmHg [90-140/60-90 mmHg] *HI* (12/16/15 1:50 PM) SpO2 97 % (12/16/15 1:50 PM) Problem List Condition Effective Dates Status [...] Daily, # 3 Each, 3 Refill(s), Pharmacy: [facility] Start Date: 08/08/15 Status: Ordered hydrochlorothiazide 25 mg oral tablet 25 mg 1 tabs, Oral, Daily, # 90 tabs, 2 Refill(s), Pharmacy: [facility], 1 tabs Oral Daily Start Date: 08/08/15 Status: Ordered levothyroxine 112 mcg (0.112 mg) oral tablet 112 mcg 1 tabs, Oral, Daily, # 90 tabs, 2 Refill(s), Pharmacy: [facility], PT DUE FOR APPOINMENT, 1 tabs Oral Daily Start Date: 08/08/15 Status: Ordered meloxicam 15 mg oral tablet 15 mg 1 tabs, Oral, Daily, # 90 tabs, 0 Refill(s) Start Date: 08/26/15 Status: Ordered montelukast 10 mg oral tablet 10 mg 1 tabs, Oral, qPM, # 90 tabs, 2 Refill(s), Pharmacy: [facility], 1 tabs Oral qPM Start Date: 08/08/15 Status: Ordered temazepam 7.5 mg oral capsule 7.5 mg 1 caps, Oral, Bedtime (once a day), as needed for sleep, # 30 caps, 0 Refill(s) Start Date: 12/16/15 Status: Ordered Vistaril 25 mg oral capsule 25 mg 1 caps, Oral, QID, as needed for anxiety, # 40 caps, 0 Refill(s) Start Date: 12/16/15 Status: Ordered Results No data available for [...] Visit Note Author: Sandra Jaffe DO Date: 12/16/15 Assessment/Plan Anxiety Patient would like to try a more as needed medication for her anxiety as she only has it about once a week or so and it's always at night. We discussed Vistaril and she is agreeable to this. She was advised of the side effects including sedation. She will return to clinic in 4 weeks as already scheduled. Ordered: Office Visit Level 4 Est 65637 Chronic insomnia We discussed multiple options. Today she would like to try temazepam out of all the medications mentioned. We will start at 7.5 mg nightly as needed and will have her return to clinic as scheduled in about 4 weeks for reevaluation. Ordered: Office Visit Level 4 Est 28246 Immunization due flu shot today. Ordered: Office Visit Level 4 Est 65471
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
--- OUTSIDE RECORDS SUMMARY | 2016-05-22 19:25 | XMS REPORT | Continuity of Care Document ---
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 Sinusitis, Acute - *Acute Depression - *Chronic [...] Influenza Vaccine - Hypertension, Unspecified - *Chronic Gynecological Examination - *Routine Allergic [...] Dosage Effective Dates (start - stop) Status levothyroxine 125 mcg tablet Take 1 tablet [...] in each nostril 50 MCG - Active Zofran 4 mg tablet take [...] Height Weight Pulse Rate Blood Pressure Temperature Unknown Procedures Procedure Date Unknown Encounters Encounter Location Date Patient Visit [facility] Patient Visit [facility] Patient [facility] Patient [facility] Patient [facility] Patient Visit [facility] Patient Visit [facility] Patient [facility] Patient [facility] Patient Visit [facility] Patient Visit [facility] Advance Directives Directive Effective Date Unknown
[2016-05-22 19:35] VITALS: Ht 160 cm; Wt 90.6 kg
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
[2016-05-22] MEDS ORDERED: IBUPROFEN 800 MG TABLET PO ONE (20:00)
[2016-05-22] MEDS ORDERED: HYDROMORPHONE 2mg/ml INJECTION IM ONE (20:00)
[2016-05-22] MEDS ORDERED: MELO-267 PO (20:07)
[2016-05-22] MEDS ORDERED: TEMA7.5C20 PO (20:07)
[2016-05-22] MEDS ORDERED: LEVO112T4 PO (20:07)
[2016-05-22] MEDS ORDERED: FEXO1TAB11 PO (20:07)
[2016-05-22] MEDS ORDERED: HYDR25TA PO (20:07)
--- NOTE | 2016-05-22 20:30 | NUR ---
CT Patient out to CT. This nurse accompanies patient d/t C-collar.
--- NOTE | 2016-05-22 20:39 | NUR ---
CT Patient tolerates transfers to/from CT machine and scan well, denies c/o.
--- NOTE | 2016-05-22 20:40 | NUR ---
CT Patient returns
--- OUTSIDE RECORDS SUMMARY | 2016-05-22 21:45 | XMS REPORT | Continuity of Care Document ---
Author Author [facility] Organization [facility] Address Unknown Phone Unavailable Allergies Medications Problems Procedures Results Encounters ACCT No. Visit Date/Time Discharge Status Pt. Type Provider Facility Loc./Unit Complaint [id number] 04/28/2013 08:29:00 04/28/2013 23 :59:59 CLS Outpatient [id number] 04/01/2013 14:44:00 04/01/2013 23 :59:59 CLS Outpatient [id number] 03/03/2013 14:20:00 03/03/2013 23 :59:59 CLS Outpatient
[2016-05-22] MEDS ORDERED: TRAM50TA4 PO (22:00)
[2016-05-22] MEDS ORDERED: TRAMADOL 50mg TAB #6 (PrePack) SENT HOME ONE (22:15)
[2016-05-22 22:25] VITALS: BP 138/79; PULSE 89; RESP 16; TEMP 98.3; O2SAT 97
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
== END 2016-05-22 22:25 | disposition home or self-care (01) ==
LOC: ED 19:21
DX: S13.9XXA Sprain of joints and ligaments of unspecified parts of neck, initial encounter (principal); S20.212A Contusion of left front wall of thorax, initial encounter; S60.212A Contusion of left wrist, initial encounter; S80.02XA Contusion of left knee, initial encounter; S80.01XA Contusion of right knee, initial encounter; V43.52XA Car driver injured in collision with other type car in traffic accident, initial encounter; Y93.89 Activity, other specified; Y92.410 Unspecified street and highway as the place of occurrence of the external cause; Y99.8 Other external cause status
CPT/HCPCS: 71010; 72125; 73100; 96372; 99284; J1170; L0150